=== PATIENT | female | born 1980 | race Caucasian/White ===

== ENCOUNTER 2019-06-30 09:37 | Emergency (ER) | payer BC ==
[~2019-06-30] VITALS: Ht 165.1 cm; Wt 63.6 kg
[2019-06-30 09:45] VITALS: BP 111/57; Ht 165.1 cm; Wt 63.6 kg
== END 2019-06-30 11:40 | disposition home or self-care (01) ==
LOC: D.ER 09:37
DX: S13.4XXA Sprain of ligaments of cervical spine, initial encounter (principal); W50.1XXA Accidental kick by another person, initial encounter; Y93.89 Activity, other specified; Y92.89 Other specified places as the place of occurrence of the external cause